=== PATIENT | female | born 1960 | race Caucasian/White ===

== ENCOUNTER → 2018-01-29 | Outpatient (CLI) | payer OTHER ==
[~2018-01-29] MED LIST: 'PARAFON FORTE500 M1 PO; EFFEXOR XR150 M1 PO; HYDR25T PO; HYDROCODONE BIT1 T11 PO; MULTI VITAMINS1 TAB PO; NAPROSYN500 MG PO; PRILOSEC20 M2 PO; ULTRAM50 MG PO; ZESTRIL10 MG PO
== END | disposition home or self-care (01) ==
LOC: MAMMO 12:24
DX: Z12.31 Encounter for screening mammogram for malignant neoplasm of breast (principal)

== ENCOUNTER → 2020-03-17 | Outpatient (CLI) | payer OTHER | END | disposition home or self-care (01) | LOC: RAD 09:50 | DX: M47.816 Spondylosis without myelopathy or radiculopathy, lumbar region (principal); M43.16 Spondylolisthesis, lumbar region; M85.88 Other specified disorders of bone density and structure, other site ==

== ENCOUNTER → 2020-10-21 | Outpatient (CLI) | payer OTHER | END | disposition home or self-care (01) | LOC: RAD 10:58 | PROVIDERS: ATTEND Nurse Practitioner Family | DX: M25.511 Pain in right shoulder (principal) ==

== ENCOUNTER → 2021-04-07 | Outpatient (CLI) | payer OTHER | END | disposition home or self-care (01) | LOC: RAD 13:47 | PROVIDERS: ATTEND Nurse Practitioner Family | DX: M25.551 Pain in right hip (principal) ==

== ENCOUNTER 2023-03-26 14:01 | Inpatient (IN) | payer OTHER ==
[~2023-03-26] VITALS: Ht 170.1 cm; Wt 102.1 kg
[~2023-03-26 14:01] MED LIST changes: +PRILOSEC20 M1 PO; -PRILOSEC20 M2 PO
[2023-03-26 14:25] VITALS: BP 144/89
[2023-03-26 15:06] LABS: BASO # 0.1 10*3/uL (0.0-0.1); BASO % 0.7 % (0.0-1.0); EOS # 0.2 10*3/uL (0.0-0.4); EOS % 3.4 % (1.0-4.0); HEMATOCRIT 39.9 % (37.0-47.0); LYMPH # 1.8 10*3/uL (1.3-4.4); LYMPH % 26.5 % (27.0-41.0); MEAN CELL VOLUME 101.3 fl (81.0-99.0); MEAN CORPUSCULAR HGB 33.5 pg (27.0-31.0); MEAN CORPUSCULAR HGB CONC 33.1 g/dl (33.0-37.0); MEAN PLATELET VOLUME 10.1 fl (9.6-12.3); MONO # 0.5 10*3/uL (0.1-1.0); MONO % 7.8 % (3.0-9.0); NEUT # 4.1 10*3/uL (2.3-7.9); PLATELET COUNT AUTOMATED 311 10*3/uL (130-400); RED BLOOD COUNT 3.94 10*6/uL (4.10-5.10); RED CELL DISTRI WIDTH 12.4 % (0-14.5); WHITE BLOOD COUNT 6.7 10*3/uL (4.8-10.8)
[2023-03-26 15:21] VITALS: BP 102/68
[2023-03-26 15:32] LABS: ALKALINE PHOSPHATASE 83 U/L (46-116); BUN 21 mg/dl (9-23); CHLORIDE 106 mmol/L (98-107); LIPASE 40 U/L (12-53); POTASSIUM 4.3 mmol/L (3.4-5.1); SGPT/ALT 13 U/L (10-49)
[2023-03-26 15:36] LABS: ACT PARTIAL THROMBO TIME 23.9 SECONDS (20.0-32.1)
[2023-03-26 16:05] VITALS: BP 111/74
[2023-03-26 16:30] VITALS: BP 141/71
[2023-03-26] MEDS ORDERED: GOOD NEIGHBOR L10 MG PO (18:55)
[2023-03-26 20:00] VITALS: BP 116/54
[2023-03-26 22:00] VITALS: BP 99/69
[2023-03-27] VITALS (10 sets, daily range): BP systolic 109–138; BP diastolic 60–85
[2023-03-27 05:09] LABS: BUN 16 mg/dl (9-23); CHLORIDE 105 mmol/L (98-107); CHOLESTEROL 250 mg/dL (<200); LDL CHOLESTEROL 129 mg/dL (9-159); POTASSIUM 4.3 mmol/L (3.4-5.1); THYROID STIM HORMONE (HS) 1.507 uIU/ml (0.550-4.780); TRIGLYCERIDES 266 mg/dl (<150)
[2023-03-27 05:10] LABS: VITAMIN D, 25-HYDROXY 31.6 ng/mL (30-100)
[2023-03-27 06:18] LABS: BASO # 0.1 10*3/uL (0.0-0.1); BASO % 0.7 % (0.0-1.0); EOS # 0.3 10*3/uL (0.0-0.4); EOS % 3.9 % (1.0-4.0); HEMATOCRIT 39.2 % (37.0-47.0); LYMPH # 1.9 10*3/uL (1.3-4.4); LYMPH % 26.2 % (27.0-41.0); MEAN CELL VOLUME 100.3 fl (81.0-99.0); MEAN CORPUSCULAR HGB 33.2 pg (27.0-31.0); MEAN CORPUSCULAR HGB CONC 33.2 g/dl (33.0-37.0); MEAN PLATELET VOLUME 10.7 fl (9.6-12.3); MONO # 0.5 10*3/uL (0.1-1.0); MONO % 7.2 % (3.0-9.0); NEUT # 4.4 10*3/uL (2.3-7.9); NEUT % 61.4 % (47.0-73.0); PLATELET COUNT AUTOMATED 288 10*3/uL (130-400); RED BLOOD COUNT 3.91 10*6/uL (4.10-5.10); RED CELL DISTRI WIDTH 12.3 % (0-14.5); WHITE BLOOD COUNT 7.2 10*3/uL (4.8-10.8)
[2023-03-28] VITALS (10 sets, daily range): BP systolic 107–140; BP diastolic 52–83
[2023-03-28 06:32] LABS: BASO % 0.5 % (0.0-1.0); EOS # 0.2 10*3/uL (0.0-0.4); EOS % 3.1 % (1.0-4.0); HEMATOCRIT 39.4 % (37.0-47.0); LYMPH # 1.7 10*3/uL (1.3-4.4); MEAN PLATELET VOLUME 10.2 fl (9.6-12.3); MONO # 0.5 10*3/uL (0.1-1.0); MONO % 7.8 % (3.0-9.0); NEUT # 3.5 10*3/uL (2.3-7.9); NEUT % 59.1 % (47.0-73.0); PLATELET COUNT AUTOMATED 274 10*3/uL (130-400); RED BLOOD COUNT 3.94 10*6/uL (4.10-5.10); RED CELL DISTRI WIDTH 12.1 % (0-14.5); WHITE BLOOD COUNT 5.9 10*3/uL (4.8-10.8)
[2023-03-28 06:59] LABS: BUN 13 mg/dl (9-23); CHLORIDE 106 mmol/L (98-107)
[2023-03-28] MEDS ORDERED: XARE20MG PO (15:23)
[2023-03-28] MEDS ORDERED: CARDIZEM CD180 MG PO (15:23)
== END 2023-03-28 16:10 | disposition home or self-care (01) | DRG 201 ==
LOC: ED 14:01 → EDHOLD 15:44 → 5E 15:44
PROVIDERS: Emergency Medicine; Internal Medicine; Occupational Therapist; ADMIT Internal Medicine; ATTEND Internal Medicine
PROC: B24BZZ4 Ultrasonography of Heart with Aorta, Transesophageal (ICD-10-PCS; principal; 2023-03-28)
PROC: 5A2204Z Restoration of Cardiac Rhythm, Single (ICD-10-PCS; 2023-03-28)
DX: I48.91 Unspecified atrial fibrillation (principal); I10 Essential (primary) hypertension; F41.9 Anxiety disorder, unspecified; E83.42 Hypomagnesemia; Z96.642 Presence of left artificial hip joint; R79.89 Other specified abnormal findings of blood chemistry; K21.9 Gastro-esophageal reflux disease without esophagitis; E66.09 Other obesity due to excess calories; Z88.2 Allergy status to sulfonamides; Z88.8 Allergy status to other drugs, medicaments and biological substances; Z82.49 Family history of ischemic heart disease and other diseases of the circulatory system; Z82.5 Family history of asthma and other chronic lower respiratory diseases; Z79.1 Long term (current) use of non-steroidal anti-inflammatories (NSAID); Z79.899 Other long term (current) drug therapy; Z98.51 Tubal ligation status

== ENCOUNTER → 2023-04-19 | Outpatient (CLI) | payer OTHER ==
[~2023-04-19] MED LIST changes: +CARDIZEM CD180 MG PO; +GOOD NEIGHBOR L10 MG PO; +XARE20MG PO
== END | disposition home or self-care (01) ==
LOC: RAD 10:37
PROVIDERS: ATTEND Chiropractor
DX: M47.812 Spondylosis without myelopathy or radiculopathy, cervical region (principal); M48.02 Spinal stenosis, cervical region; M19.012 Primary osteoarthritis, left shoulder

== ENCOUNTER → 2023-10-31 | Outpatient (CLI) | payer MEDICARE, OTHER | END | disposition home or self-care (01) | LOC: RAD 09:45 | PROVIDERS: ATTEND Nurse Practitioner Family | DX: M19.041 Primary osteoarthritis, right hand (principal); R60.0 Localized edema; M79.89 Other specified soft tissue disorders ==

== ENCOUNTER → 2023-12-03 | Outpatient (CLI) | payer MEDICARE, OTHER, MEDICAID | END | disposition home or self-care (01) | LOC: RAD 10:46 | PROVIDERS: ATTEND Nurse Practitioner Family | DX: M16.11 Unilateral primary osteoarthritis, right hip (principal) ==

== ENCOUNTER → 2024-03-05 | Outpatient (CLI) | payer MEDICARE, MEDICAID ==
[~2024-03-05] MED LIST changes: +COLCHICINE0.6 M2 PO; +HYDROCODONE-AC1 EAC1 PO; +LISINOPRIL40 MG PO
== END ==
LOC: ORTHO 01:08
PROVIDERS: ATTEND Orthopaedic Surgery
DX: M19.041 Primary osteoarthritis, right hand (principal); M1A.9XX1 Chronic gout, unspecified, with tophus (tophi); M25.741 Osteophyte, right hand; M25.841 Other specified joint disorders, right hand

== ENCOUNTER 2024-03-24 11:09 | Emergency (ER) | payer MEDICARE ==
[~2024-03-24] VITALS: Ht 170.1 cm; Wt 98.9 kg
[2024-03-24 11:38] LABS: BASO # 0.1 10*3/uL (0.0-0.1); BASO % 0.8 % (0.0-1.0); EOS # 0.2 10*3/uL (0.0-0.4); EOS % 3.8 % (1.0-4.0); LYMPH # 1.1 10*3/uL (1.3-4.4); LYMPH % 16.5 % (27.0-41.0); MEAN CELL VOLUME 98.1 fl (81.0-99.0); MEAN CORPUSCULAR HGB 32.4 pg (27.0-31.0); MEAN PLATELET VOLUME 10.1 fl (9.6-12.3); MONO # 0.5 10*3/uL (0.1-1.0); MONO % 7.5 % (3.0-9.0); NEUT # 4.5 10*3/uL (2.3-7.9); NEUT % 70.9 % (47.0-73.0); PLATELET COUNT AUTOMATED 265 10*3/uL (130-400); RED BLOOD COUNT 3.77 10*6/uL (4.10-5.10); RED CELL DISTRI WIDTH 12.8 % (0-14.5); WHITE BLOOD COUNT 6.4 10*3/uL (4.8-10.8)
[2024-03-24] MEDS ORDERED: Metoprolol Tartrate 5 MG/5 ML VIAL IV ONE ×2 (11:45→12:35)
[2024-03-24 12:00] LABS: ALKALINE PHOSPHATASE 94 U/L (46-116); BUN 15 mg/dl (9-23); CHLORIDE 110 mmol/L (98-107); POTASSIUM 4.3 mmol/L (3.4-5.1); SGPT/ALT 10 U/L (5-49); TOTAL PROTEIN 6.7 gm/dL (6.0-8.0)
[2024-03-24 12:20] LABS: ACT PARTIAL THROMBO TIME 26.9 SECONDS (20.0-32.1)
[2024-03-24] MEDS ORDERED: CARDIZEM CD240 M1 PO (14:37)
== END 2024-03-24 15:04 | disposition home or self-care (01) ==
LOC: ED 11:09
PROVIDERS: Internal Medicine
DX: I48.91 Unspecified atrial fibrillation (principal); I10 Essential (primary) hypertension; F41.9 Anxiety disorder, unspecified; K21.9 Gastro-esophageal reflux disease without esophagitis; Z88.8 Allergy status to other drugs, medicaments and biological substances; Z88.2 Allergy status to sulfonamides; Z98.890 Other specified postprocedural states; Z98.51 Tubal ligation status; Z90.89 Acquired absence of other organs

== ENCOUNTER → 2024-04-02 | Day surgery (SDC) | payer MEDICARE ==
[~2024-04-02] VITALS: Ht 157.4 cm; Wt 95.3 kg
[~2024-04-02] MED LIST changes: +CARDIZEM CD240 M1 PO; +Lactated Ringer's Solution 1,000 ML IV ONE; +Lactated Ringer's Solution 1,000 ML IV SCH; +Lidocaine Hydrochloride 2% 10 ML AMP IM ONE; +Midazolam Hydrochloride 2 MG/2 ML VIAL IV ONE; +PROPOFOL 200 MG/20 ML VIAL IV ONE
[2024-04-02 09:53] VITALS: BP 125/88
[2024-04-02 10:49] VITALS: BP 106/61
[2024-04-02 11:04] VITALS: BP 110/71
[2024-04-02 11:15] VITALS: BP 121/68
== END | disposition home or self-care (01) ==
LOC: SDC 04-01 12:30
PROVIDERS: ATTEND Internal Medicine Cardiovascular Disease
DX: I48.91 Unspecified atrial fibrillation (principal); I10 Essential (primary) hypertension; K21.9 Gastro-esophageal reflux disease without esophagitis; F41.9 Anxiety disorder, unspecified; E78.00 Pure hypercholesterolemia, unspecified; M19.90 Unspecified osteoarthritis, unspecified site; M10.9 Gout, unspecified; F32.A Depression, unspecified; F10.90 Alcohol use, unspecified, uncomplicated; Z98.51 Tubal ligation status; Z90.89 Acquired absence of other organs; Z87.891 Personal history of nicotine dependence; Z96.642 Presence of left artificial hip joint; Z98.890 Other specified postprocedural states; Z79.899 Other long term (current) drug therapy; Z88.2 Allergy status to sulfonamides; Z88.8 Allergy status to other drugs, medicaments and biological substances; Z83.3 Family history of diabetes mellitus; Z82.49 Family history of ischemic heart disease and other diseases of the circulatory system

== ENCOUNTER 2025-01-16 13:45 | Emergency (ER) | payer MEDICARE ==
[~2025-01-16] VITALS: Ht 170.1 cm; Wt 93.4 kg
[~2025-01-16 13:45] MED LIST changes: -Lactated Ringer's Solution 1,000 ML IV ONE; -Lactated Ringer's Solution 1,000 ML IV SCH; -Lidocaine Hydrochloride 2% 10 ML AMP IM ONE; -Midazolam Hydrochloride 2 MG/2 ML VIAL IV ONE; -PROPOFOL 200 MG/20 ML VIAL IV ONE
[2025-01-16] MEDS ORDERED: Metoprolol Tartrate 5 MG/5 ML VIAL IV ONE ×2 (14:15→14:35)
[2025-01-16] MEDS ORDERED: ETOMIDATE 20 MG/10 ML VIAL IV ONE (14:15)
[2025-01-16 14:28] LABS: BASO # 0.1 10*3/uL (0.0-0.1); BASO % 0.9 % (0.0-1.0); EOS # 0.2 10*3/uL (0.0-0.4); EOS % 1.8 % (1.0-4.0); HEMATOCRIT 41.4 % (37.0-47.0); MEAN CORPUSCULAR HGB 32.8 pg (27.0-31.0); MEAN CORPUSCULAR HGB CONC 33.1 g/dl (33.0-37.0); MEAN PLATELET VOLUME 9.6 fl (9.6-12.3); MONO # 0.9 10*3/uL (0.1-1.0); MONO % 9.4 % (3.0-9.0); NEUT # 6.7 10*3/uL (2.3-7.9); NEUT % 70.9 % (47.0-73.0); PLATELET COUNT AUTOMATED 347 10*3/uL (130-400); RED BLOOD COUNT 4.18 10*6/uL (4.10-5.10); RED CELL DISTRI WIDTH 12.9 % (0-14.5); WHITE BLOOD COUNT 9.4 10*3/uL (4.8-10.8)
[2025-01-16 14:50] LABS: POTASSIUM 4.1 mmol/L (3.4-5.1); TOTAL PROTEIN 6.7 gm/dL (6.0-8.0)
[2025-01-16] MEDS ORDERED: SODIUM CHLORIDE 0.9% 1,000 ML IV ONE (15:05)
[2025-01-16] MEDS ORDERED: Ondansetron Hydrochloride 4 MG/2 ML VIAL IV ONE (15:20)
[2025-01-16] MEDS ORDERED: MAGNESIUM SULFATE 100 ML IV ONE (15:20)
[2025-01-16] MEDS ORDERED: MAGNESIUM SULFATE 50 ML IV ONE (15:20)
== END 2025-01-16 17:06 | disposition home or self-care (01) ==
LOC: ED 13:45
PROVIDERS: Nurse Practitioner Family
DX: I48.20 Chronic atrial fibrillation, unspecified (principal); E83.42 Hypomagnesemia; I10 Essential (primary) hypertension; F41.9 Anxiety disorder, unspecified; K21.9 Gastro-esophageal reflux disease without esophagitis; E78.00 Pure hypercholesterolemia, unspecified; M19.90 Unspecified osteoarthritis, unspecified site; Z88.8 Allergy status to other drugs, medicaments and biological substances; Z88.2 Allergy status to sulfonamides; Z79.899 Other long term (current) drug therapy; Z96.642 Presence of left artificial hip joint; Z90.89 Acquired absence of other organs; Z87.891 Personal history of nicotine dependence

== ENCOUNTER 2025-05-25 12:12 | Inpatient (IN) | payer MEDICARE ==
[~2025-05-25] VITALS: Ht 170.1 cm; Wt 93.2 kg
[2025-05-25] VITALS (10 sets, daily range): BP systolic 100–140; BP diastolic 52–90
[2025-05-25] MEDS ORDERED: Lactated Ringer's Solution 1,000 ML IV SCH (12:40)
[2025-05-25 12:57] LABS: BASO # 0.0 10*3/uL (0.0-0.1); BASO % 0.7 % (0.0-1.0); EOS # 0.2 10*3/uL (0.0-0.4); EOS % 3.2 % (1.0-4.0); MEAN CELL VOLUME 100.2 fl (81.0-99.0); MEAN CORPUSCULAR HGB 32.3 pg (27.0-31.0); MEAN PLATELET VOLUME 9.9 fl (9.6-12.3); MONO # 0.5 10*3/uL (0.1-1.0); MONO % 8.5 % (3.0-9.0); NEUT # 4.0 10*3/uL (2.3-7.9); NEUT % 68.1 % (47.0-73.0); NUCLEATED RED BLOOD CELL 0.0 % (0.0-0.0); NUCLEATED RED BLOOD CELL 0.0 10*3/uL (0.0-0.0); PLATELET COUNT AUTOMATED 275 10*3/uL (130-400); RED CELL DISTRI WIDTH 13.2 % (0-14.5)
[2025-05-25] MEDS ORDERED: REPATHA SU140 MG/1 M SQ (13:09)
[2025-05-25] MEDS ORDERED: TRAMADOL HCL50 MG PO (13:10)
[2025-05-25] MEDS ORDERED: FLECAINIDE ACE100 M1 PO (13:10)
[2025-05-25] MEDS ORDERED: ZYLOPRIM100 MG PO (13:11)
[2025-05-25] MEDS ORDERED: ALLERGY RELIEF10 M4 PO (13:11)
[2025-05-25] MEDS ORDERED: VITAMIN D325 MC1 PO (13:12)
[2025-05-25 13:26] LABS: BUN 15 mg/dl (9-23)
[2025-05-25] MEDS ORDERED: Acetaminophen/Hydrocodone 5 MG/325 MG TABLET PO PRN (16:25)
[2025-05-25] MEDS ORDERED: BISACODYL 5 MG TAB PO PRN (16:25)
[2025-05-25] MEDS ORDERED: FLECAINIDE ACETATE 100 MG TAB PO SCH (16:45)
[2025-05-25] MEDS ORDERED: RIVAROXABAN 20 MG TAB PO SCH ×2 (17:01→18:00)
[2025-05-25] MEDS ORDERED: EVOLOCUMAB 140 MG SQ SCH (19:00)
[2025-05-26] VITALS: BP 135/74
[2025-05-26 06:29] LABS: BASO # 0.0 10*3/uL (0.0-0.1); BASO % 0.6 % (0.0-1.0); EOS # 0.2 10*3/uL (0.0-0.4); EOS % 4.4 % (1.0-4.0); MEAN CELL VOLUME 100.3 fl (81.0-99.0); MEAN CORPUSCULAR HGB 32.2 pg (27.0-31.0); MEAN PLATELET VOLUME 10.1 fl (9.6-12.3); MONO # 0.5 10*3/uL (0.1-1.0); MONO % 10.0 % (3.0-9.0); NEUT # 2.4 10*3/uL (2.3-7.9); NEUT % 51.6 % (47.0-73.0); NUCLEATED RED BLOOD CELL 0.0 % (0.0-0.0); NUCLEATED RED BLOOD CELL 0.0 10*3/uL (0.0-0.0); PLATELET COUNT AUTOMATED 231 10*3/uL (130-400); RED CELL DISTRI WIDTH 13.2 % (0-14.5)
[2025-05-26 06:37] LABS: ACT PARTIAL THROMBO TIME 29.1 SECONDS (20.0-32.1)
[2025-05-26 07:03] LABS: BUN 10 mg/dl (9-23); FREE T4 1.12 ng/dl (0.89-1.76); LDL CHOLESTEROL 60 mg/dL (9-159); SGPT/ALT 7 U/L (5-49)
[2025-05-26 08:00] VITALS: BP 120/80
[2025-05-26] MEDS ORDERED: FLECAINIDE ACETATE 100 MG TAB PO SCH (08:00)
[2025-05-26] MEDS ORDERED: METOPROLOL SUCCINATE XR 25 MG TAB PO ONE (09:30)
[2025-05-26] MEDS ORDERED: OMEPRAZOLE 20 MG CAP PO SCH (10:00)
[2025-05-26] MEDS ORDERED: LISINOPRIL 40 MG TAB PO SCH (10:00)
[2025-05-26] MEDS ORDERED: ALLOPURINOL 100 MG TAB PO SCH (10:00)
[2025-05-26] MEDS ORDERED: Venlafaxine Hydrochloride 75 MG CAP PO SCH (10:00)
[2025-05-26 12:00] VITALS: BP 120/78
[2025-05-26 16:00] VITALS: BP 140/98
[2025-05-26 20:00] VITALS: BP 129/72
[2025-05-27] VITALS: BP 138/87
[2025-05-27 06:11] LABS: BASO # 0.0 10*3/uL (0.0-0.1); BASO % 0.7 % (0.0-1.0); EOS # 0.2 10*3/uL (0.0-0.4); EOS % 3.4 % (1.0-4.0); MEAN CELL VOLUME 101.8 fl (81.0-99.0); MEAN CORPUSCULAR HGB 32.8 pg (27.0-31.0); MEAN PLATELET VOLUME 10.2 fl (9.6-12.3); MONO # 0.5 10*3/uL (0.1-1.0); MONO % 7.7 % (3.0-9.0); NEUT # 3.8 10*3/uL (2.3-7.9); NEUT % 65.6 % (47.0-73.0); NUCLEATED RED BLOOD CELL 0.0 % (0.0-0.0); NUCLEATED RED BLOOD CELL 0.0 10*3/uL (0.0-0.0); PLATELET COUNT AUTOMATED 247 10*3/uL (130-400); RED CELL DISTRI WIDTH 13.2 % (0-14.5)
[2025-05-27 06:35] LABS: BUN 9 mg/dl (9-23)
[2025-05-27 08:00] VITALS: BP 119/79
[2025-05-27] MEDS ORDERED: ACETAMINOPHEN 325 MG TAB PO PRN (08:35)
[2025-05-27] MEDS ORDERED: METOPROLOL SUCCINATE XR 25 MG TAB PO SCH (10:00)
[2025-05-27 11:09] VITALS: BP 118/78
[2025-05-27 12:00] VITALS: BP 128/75
[2025-05-27] MEDS ORDERED: IBUPROFEN 800 MG TAB PO ONE (15:55)
[2025-05-27 16:00] VITALS: BP 103/52
[2025-05-27 20:00] VITALS: BP 108/52
[2025-05-28 00:02] VITALS: BP 121/75
[2025-05-28 05:53] LABS: BUN 12 mg/dl (9-23)
[2025-05-28 06:10] LABS: BASO # 0.0 10*3/uL (0.0-0.1); BASO % 0.7 % (0.0-1.0); EOS # 0.2 10*3/uL (0.0-0.4); EOS % 5.1 % (1.0-4.0); MEAN CELL VOLUME 100.5 fl (81.0-99.0); MEAN CORPUSCULAR HGB 32.7 pg (27.0-31.0); MEAN PLATELET VOLUME 10.3 fl (9.6-12.3); MONO # 0.5 10*3/uL (0.1-1.0); MONO % 12.3 % (3.0-9.0); NEUT # 1.9 10*3/uL (2.3-7.9); NEUT % 46.7 % (47.0-73.0); NUCLEATED RED BLOOD CELL 0.0 % (0.0-0.0); NUCLEATED RED BLOOD CELL 0.0 10*3/uL (0.0-0.0); PLATELET COUNT AUTOMATED 237 10*3/uL (130-400); RED CELL DISTRI WIDTH 13.2 % (0-14.5)
[2025-05-28 08:00] VITALS: BP 120/78
[2025-05-28 16:00] VITALS: BP 114/62
[2025-05-28] MEDS ORDERED: IBUPROFEN 400 MG TAB PO ONE (16:50)
[2025-05-28 20:00] VITALS: BP 120/66
[2025-05-29] VITALS: BP 125/68
[2025-05-29 06:01] LABS: BASO # 0.0 10*3/uL (0.0-0.1); BASO % 0.7 % (0.0-1.0); EOS # 0.2 10*3/uL (0.0-0.4); EOS % 4.0 % (1.0-4.0); MEAN CELL VOLUME 102.1 fl (81.0-99.0); MEAN CORPUSCULAR HGB 32.6 pg (27.0-31.0); MEAN PLATELET VOLUME 10.2 fl (9.6-12.3); MONO # 0.5 10*3/uL (0.1-1.0); MONO % 11.9 % (3.0-9.0); NEUT # 2.5 10*3/uL (2.3-7.9); NEUT % 54.6 % (47.0-73.0); NUCLEATED RED BLOOD CELL 0.0 % (0.0-0.0); NUCLEATED RED BLOOD CELL 0.0 10*3/uL (0.0-0.0); PLATELET COUNT AUTOMATED 234 10*3/uL (130-400); RED CELL DISTRI WIDTH 12.9 % (0-14.5)
[2025-05-29 06:24] LABS: BUN 12 mg/dl (9-23)
[2025-05-29 08:00] VITALS: BP 129/58
[2025-05-29] MEDS ORDERED: LISINOPRIL 20 MG TAB PO SCH (10:00)
[2025-05-29] MEDS ORDERED: METOPROLOL SUCCINATE XR 50 MG TAB PO SCH (10:00)
[2025-05-29 12:00] VITALS: BP 133/51
[2025-05-29] MEDS ORDERED: DIGOXIN 500 MCG/2 ML AMP IV ONE (12:50)
[2025-05-29 16:00] VITALS: BP 118/65
[2025-05-29 20:00] VITALS: BP 132/64
[2025-05-29] MEDS ORDERED: METOPROLOL SUCCINATE XR 25 MG TAB PO SCH (22:00)
[2025-05-30] VITALS: BP 145/86
[2025-05-30 05:24] LABS: BUN 12 mg/dl (9-23)
[2025-05-30 06:06] LABS: BASO # 0.0 10*3/uL (0.0-0.1); BASO % 0.7 % (0.0-1.0); EOS # 0.2 10*3/uL (0.0-0.4); EOS % 3.7 % (1.0-4.0); MEAN CELL VOLUME 101.1 fl (81.0-99.0); MEAN CORPUSCULAR HGB 32.3 pg (27.0-31.0); MEAN PLATELET VOLUME 10.7 fl (9.6-12.3); MONO # 0.7 10*3/uL (0.1-1.0); MONO % 12.5 % (3.0-9.0); NEUT # 3.5 10*3/uL (2.3-7.9); NEUT % 59.2 % (47.0-73.0); NUCLEATED RED BLOOD CELL 0.0 % (0.0-0.0); NUCLEATED RED BLOOD CELL 0.0 10*3/uL (0.0-0.0); PLATELET COUNT AUTOMATED 257 10*3/uL (130-400); RED CELL DISTRI WIDTH 13.0 % (0-14.5)
[2025-05-30 08:00] VITALS: BP 131/65
[2025-05-30 12:00] VITALS: BP 131/76
[2025-05-30] MEDS ORDERED: METOPROLOL SUCC25 M2 PO ×2 (12:54→14:07)
[2025-05-30] MEDS ORDERED: LISINOPRIL20 MG PO ×2 (12:54→14:07)
== END 2025-05-30 14:30 | disposition home or self-care (01) | DRG 309 ==
LOC: ED 12:12 → 5E 15:59 → EDHOLD 15:59 → 5E 16:57 → 4E 05-29 13:56
PROVIDERS: Emergency Medicine; ADMIT Internal Medicine; ATTEND Internal Medicine
DX: I48.91 Unspecified atrial fibrillation (principal); E44.0 Moderate protein-calorie malnutrition; M1A.9XX0 Chronic gout, unspecified, without tophus (tophi); I48.92 Unspecified atrial flutter; I44.0 Atrioventricular block, first degree; I10 Essential (primary) hypertension; E78.5 Hyperlipidemia, unspecified; K21.9 Gastro-esophageal reflux disease without esophagitis; F41.9 Anxiety disorder, unspecified; R73.9 Hyperglycemia, unspecified; Z96.642 Presence of left artificial hip joint; Z90.89 Acquired absence of other organs; Z87.891 Personal history of nicotine dependence; Z82.49 Family history of ischemic heart disease and other diseases of the circulatory system; Z83.3 Family history of diabetes mellitus; Z83.6 Family history of other diseases of the respiratory system; Z88.8 Allergy status to other drugs, medicaments and biological substances; Z88.2 Allergy status to sulfonamides; Z79.899 Other long term (current) drug therapy; Z68.32 Body mass index [BMI] 32.0-32.9, adult